=== PATIENT | female | born 1960 | race Caucasian/White ===

== ENCOUNTER 2023-05-29 08:41 | Emergency (ER) | payer BC ==
[~2023-05-29] VITALS: Ht 160 cm; Wt 76.2 kg
[2023-05-29 09:30] VITALS: BP_SYST 164; PULSE 82; RESP 18; TEMP 96.8; O2SAT 99
[2023-05-29 09:45] LABS: BASOPHILS % (AUTO) 0.6 % (0.0-2.0); EOSINOPHILS # (AUTO) 0.1 K/uL (0.0-0.4); EOSINOPHILS % (AUTO) 1.7 % (0.0-4.0); HEMATOCRIT 36.1 % (36-48); HEMOGLOBIN 12.3 g/dL (12.0-16.0); LYMPHOCYTES # (AUTO) 1.2 K/uL (1.0-5.5); LYMPHOCYTES % (AUTO) 22.7 % (20.5-51.5); MEAN CORPUSCULAR HEMOGLOBIN 29 pg (27-31); MEAN CORPUSCULAR HGB CONC 34 % (32-36); MEAN CORPUSCULAR VOLUME 86 fL (79.0-98.0); MONOCYTES # (AUTO) 0.4 K/uL (0.0-1.0); MONOCYTES % (AUTO) 7.2 % (1.7-9.3); NEUTROPHILS # (AUTO) 3.7 K/uL (1.8-7.7); NEUTROPHILS % (AUTO) 67.8 % (40.0-70.0); PLATELET COUNT (AUTO) 252 K/uL (130-430); RED BLOOD CELL COUNT(AUTO) 4.23 MIL/uL (4.2-6.2); RED CELL DISTRIBUTION WIDTH 14.1 % (9.0-15.0); WHITE BLOOD COUNT (AUTO) 5.5 K/uL (4.8-10.8)
[2023-05-29 09:53] LABS: CALCIUM 8.4 mg/dL (8.4-11.0); CREATININE 1.72 mg/dL (0.55-1.30); POTASSIUM 4.2 mmol/L (3.5-5.1)
[2023-05-29 09:57] LABS: ALBUMIN 3.2 g/dL (3.4-4.8); BILIRUBIN,DIRECT 0.1 mg/dL (0.0-0.3); TOTAL BILIRUBIN 0.5 mg/dL (0.0-1.0); TOTAL PROTEIN, SERUM 6.5 g/dL (6.4-8.3)
[2023-05-29 16:06] VITALS: BP_SYST 164; PULSE 82; RESP 18; TEMP 96.8; O2SAT 99
== END 2023-05-29 16:05 | disposition left against medical advice (07) ==
LOC: SED 08:41
DX: K80.50 Calculus of bile duct without cholangitis or cholecystitis without obstruction (principal); R19.00 Intra-abdominal and pelvic swelling, mass and lump, unspecified site; Z79.899 Other long term (current) drug therapy
CPT/HCPCS: 36415; 76376; 80048; 80076; 83690; 85025; 99284

== ENCOUNTER 2023-08-13 05:45 | Day surgery (SDC) | payer BC ==
[~2023-08-13] VITALS: Ht 160 cm; Wt 60.1 kg
[2023-08-13] MEDS ORDERED: SIMETHICONE 40 MG/0.6 ML ML ONE (06:53)
[2023-08-13] MEDS ORDERED: ROCURONIUM BROMIDE 10 MG/ML (ZEMURON) ONE (07:52)
[2023-08-13] MEDS ORDERED: fentaNYL CITRATE/PF 100 MCG/2 ML AMP ONE (07:52)
[2023-08-13] MEDS ORDERED: NEOSTIGMINE METHYLSULFATE 1 MG/ML, 10 ML VIAL ONE (07:52)
[2023-08-13] MEDS ORDERED: GLYCOPYRROLATE 0.2 MG/ML VIAL ONE (07:52)
[2023-08-13] MEDS ORDERED: NS 1000 ML IV.SOLN IV ONE (07:52)
[2023-08-13] MEDS ORDERED: KETOROLAC TROMETHAMINE 30 MG VIAL ONE (07:52)
[2023-08-13] MEDS ORDERED: DEXAMETHASONE SOD PHOSPHATE 4 MG/ML VIAL ONE (07:52)
[2023-08-13] MEDS ORDERED: PROPOFOL 200MG/ 20ML VIAL (DIPRIVAN) IV ONE (07:52)
[2023-08-13] MEDS ORDERED: SUCCINYLCHOLINE CHLORIDE 20 MG/ML(QUELICIN) ONE (07:52)
[2023-08-13] MEDS ORDERED: SEVOFLURANE 15 MIN GAS INH ONE (07:52)
[2023-08-13] MEDS ORDERED: ONDANSETRON HCL 4 MG/2 ML VIAL ONE (07:52)
[2023-08-13] MEDS: INDOMETHACIN 50 MG SUPP.RECT RC ONE (08:08)
[2023-08-13] MEDS ORDERED: ACETAMINOPHEN I.V. 1000 MG 100 ML IV ONE (08:30)
[2023-08-13] MEDS ORDERED: KETOROLAC TROMETHAMINE 30 MG VIAL IVP PRN (08:30)
[2023-08-13] MEDS ORDERED: METOCLOPRAMIDE HCL 10 MG/2 ML VIAL IVP PRN (08:30)
[2023-08-13] MEDS ORDERED: HYDROmorphone 1 MG/ML INJ. CARTRIDGE IVP PRN (08:30)
[2023-08-13] MEDS ORDERED: IBUPROFEN 600 MG TABLET PO ONE (08:30)
[2023-08-13] MEDS ORDERED: ONDANSETRON HCL 4 MG/2 ML VIAL IVP PRN (08:30)
[2023-08-13 10:51] VITALS: O2SAT 100
[2023-08-13 15:56] VITALS: BP_SYST 130; PULSE 70; RESP 16
== END 2023-08-13 11:06 | disposition home or self-care (01) ==
LOC: SMU 05:45 → SDS 05:45
PROVIDERS: ATTEND Internal Medicine
DX: K80.50 Calculus of bile duct without cholangitis or cholecystitis without obstruction (principal); K83.8 Other specified diseases of biliary tract; I12.9 Hypertensive chronic kidney disease with stage 1 through stage 4 chronic kidney disease, or unspecified chronic kidney disease; N18.1 Chronic kidney disease, stage 1; F17.210 Nicotine dependence, cigarettes, uncomplicated; Z90.49 Acquired absence of other specified parts of digestive tract; Z79.899 Other long term (current) drug therapy
CPT/HCPCS: 43262; 43264; J1100; J3490; J1885; J2405; J2704; J0330; J3010; Q9967; J7030; C1769; J2710; 76001